=== PATIENT | male | born 1945 | race Caucasian/White ===

== ENCOUNTER 2018-06-20 07:38 | Outpatient (CLI) | payer MEDICARE, BC ==
[2018-06-20] VITALS (22 sets, daily range): BP systolic 108–145; BP diastolic 63–91
== END 2018-06-20 23:59 | disposition home or self-care (01) ==
LOC: CARD DIAG 07:38
PROVIDERS: ATTEND Internal Medicine Cardiovascular Disease
DX: R55 Syncope and collapse (principal); I10 Essential (primary) hypertension
CPT/HCPCS: 93660

== ENCOUNTER 2025-01-28 13:48 | Outpatient (CLI) | payer MEDICARE, BC | END 2025-01-28 23:59 | disposition home or self-care (01) | LOC: MRI02 13:48 | PROVIDERS: ATTEND Specialist | DX: S32.020D Wedge compression fracture of second lumbar vertebra, subsequent encounter for fracture with routine healing (principal); W18.30XD Fall on same level, unspecified, subsequent encounter; G81.93 Hemiplegia, unspecified affecting right nondominant side; C61 Malignant neoplasm of prostate; M47.816 Spondylosis without myelopathy or radiculopathy, lumbar region | CPT/HCPCS: 72148 ==

== ENCOUNTER 2025-03-12 12:04 | Outpatient (CLI) | payer MEDICARE, BC ==
--- NOTE | 2025-03-12 14:34 | RADIOLOGY REPORT ---
PROCEDURE: MR MRI THORACIC SPINE INDICATION: RIGHT LEG WEAKNESS Exam Date: 03/12/2025 01:12 PM COMPARISON: None TECHNIQUE: MRI thoracic spine without intravenous contrast. FINDINGS: The thoracic alignment is intact. The vertebral body heights are intact. There are degenerative en dplate changes with anterior and lateral osteophytes mid to lower thoracic levels. The thoracic cord signal and contour appear intact. There is no significant posterior disc disease, central canal or n eural foraminal narrowing. The visualized paraspinal soft tissues are otherwise unremarkable. IMPRESSION: 1. Mild to moderate degenerative disease. No significant posterior disc disease, central canal or sandra ral foraminal narrowing. 2. Intact thoracic cord signal. No evidence of cord compression. HS:Y
--- NOTE | 2025-03-12 14:46 | RADIOLOGY REPORT ---
PROCEDURE: MR MRI C SPINE INDICATION: RIGHT LEG PAIN EXAM DATE: 03/12/2025 12:49 PM COMPARISON: None TECHNIQUE: MRI cervical spine without intravenous contrast. FINDINGS: Grade 1 anterolisthesis of C4 on C5. There are degenerative endplate changes with anterior osteophy marian mid to lower cervical levels. The visualized posterior fossa and craniocervical junction are inta ct. The intrinsic cervical cord signal appears intact. There is no prevertebral soft tissue swellin g. The visualized paraspinal soft tissues are otherwise unremarkable. The following axial levels are detailed below: C2-C3: Unremarkable. C3-C4: Moderate posterior disc osteophyte complex complicated by facet arthropathy associated with moderate to severe left neural foraminal stenosis. Central canal measures 9 mm. C4-C5: Moderate posterior disc osteophyte complex complicated by facet arthropathy associated with moderate to severe right neural foraminal stenosis. Central canal measures 9 mm. C5-C6: Moderate posterior disc osteophyte complex complicated by facet arthropathy associated with moderate to severe bilateral neural foraminal stenosis. No significant central canal stenosis. C6-C7: Mild posterior disc bulge. No significant central canal or neural foraminal stenosis. C7-T1: Mild posterior disc bulge. No significant central canal or neural foraminal stenosis. IMPRESSION: 1. Multilevel degenerative disease. Mild central canal stenosis C3-4 and C4-5. Grade 1 anterolisthes is of C4 on C5. Neural foraminal stenosis as above. 2. Intact cervical cord signal. No evidence of cord compression. HS:Y
== END 2025-03-12 23:59 | disposition home or self-care (01) ==
LOC: MRI02 12:04
PROVIDERS: ATTEND Nurse Practitioner Family
DX: M50.13 Cervical disc disorder with radiculopathy, cervicothoracic region (principal); R29.898 Other symptoms and signs involving the musculoskeletal system; R29.6 Repeated falls; M43.12 Spondylolisthesis, cervical region; M48.03 Spinal stenosis, cervicothoracic region
CPT/HCPCS: 72141; 72146